=== PATIENT | female | born 1990 | race Caucasian/White ===

== ENCOUNTER 2017-11-26 18:19 | Emergency (ER) | payer OTHER ==
[~2017-11-26] VITALS: Ht 160 cm; Wt 108.4 kg
[2017-11-26 18:31] VITALS: Ht 160 cm; Wt 108.4 kg
[2017-11-26 20:04] VITALS: BP 129/75
== END 2017-11-26 20:04 | disposition home or self-care (01) ==
LOC: ED 18:19
DX: S39.012A Strain of muscle, fascia and tendon of lower back, initial encounter (principal); X58.XXXA Exposure to other specified factors, initial encounter; Y93.89 Activity, other specified; Y92.89 Other specified places as the place of occurrence of the external cause; Y99.8 Other external cause status
CPT/HCPCS: J1885